=== PATIENT | female | born 1985 | race Hispanic/Latino ===

== ENCOUNTER 2017-08-02 10:49 | Emergency (ER) | payer SELFPAY ==
[2017-08-02] MEDS ORDERED: KETOROLAC TROMETHAMINE 30MG/ML ONE (11:33)
== END 2017-08-02 12:53 | disposition home or self-care (01) ==
LOC: EDH 10:49
DX: R59.9 Enlarged lymph nodes, unspecified (principal); Z98.890 Other specified postprocedural states
CPT/HCPCS: 71046; 73000; 76536; 96372; 99284; J1885

== ENCOUNTER 2019-06-22 19:08 | Emergency (ER) | payer OTHER ==
[2019-06-22 19:47] LABS: BASOPHILS % (AUTO) 0.4 % (0.0-5.0); EOSINOPHILS % (AUTO) 1.9 % (0.0-8.0); HEMATOCRIT 36.5 % (36-48); LYMPHOCYTES % (AUTO) 29.5 % (21.0-51.0); MEAN CORPUSCULAR HEMOGLOBIN 26.7 pg (27.0-33.0); MEAN CORPUSCULAR HGB CONC 32.1 g/dL (32.0-36.0); MEAN CORPUSCULAR VOLUME 83.1 fL (79-99); MONOCYTES % (AUTO) 8.3 % (3.0-13.0); NEUTROPHILS % (AUTO) 59.6 % (40.0-77.0); PLATELET COUNT (AUTO) 430 K/uL (130-400); RED BLOOD CELL COUNT(AUTO) 4.39 MIL/uL (4.00-5.50); RED CELL DISTRIBUTION WIDTH 13.6 % (11.0-15.5); WHITE BLOOD COUNT (AUTO) 11.3 K/uL (4.8-10.8)
[2019-06-22 19:56] LABS: CREATININE 0.8 mg/dL (0.5-1.5); POTASSIUM 3.7 mmol/L (3.5-5.1)
[2019-06-22] MEDS ORDERED: SODIUM CHLORIDE 0.9% 1000ML 1,000 ML IV ONE (20:13)
[2019-06-22 20:21] LABS: APPEARANCE,URINE Clear (CLEAR); BILIRUBIN,URINE Negative (NEGATIVE); COLOR,URINE Yellow (YELLOW); GLUCOSE, URINE (UA) Negative (NEGATIVE); HCG,QUAL RESULT NEGATIVE (NEGATIVE); KETONES,URINE Negative (NEGATIVE); LEUKOCYTE ESTERASE ,URINE Negative (NEGATIVE); NITRATE,URINE Negative (NEGATIVE); OCCULT BLOOD,URINE Nonhemolyzed Trace (NEGATIVE); PH,URINE 6.5 (5.0-8.0); PROTEIN,URINE Negative (NEGATIVE)
[2019-06-22 20:29] LABS: RBC,URINE 0-1 /HPF (0-1)
[2019-06-22 20:30] LABS: BACTERIA,URINE Rare /HPF (None Seen); MUCUS,URINE Rare LPF (None Seen); SQUAMOUS EPITHELIAL CELL,UR Few /HPF (0-2)
== END 2019-06-22 21:29 | disposition home or self-care (01) ==
LOC: EDH 19:08
DX: J20.8 Acute bronchitis due to other specified organisms (principal)
CPT/HCPCS: 36415; 71046; 80048; 81001; 81025; 84484; 85025; 85378; 87804 ×2; 93005; 99285; J7030

== ENCOUNTER 2021-10-30 23:43 | Emergency (ER) | payer OTHER ==
[~2021-10-30] VITALS: Ht 165.1 cm; Wt 104.3 kg
[2021-10-31 00:54] LABS: BASOPHILS % (AUTO) 0.5 % (0.0-5.0); EOSINOPHILS % (AUTO) 1.8 % (0.0-8.0); HEMATOCRIT 33.1 % (36-48); LYMPHOCYTES % (AUTO) 32.1 % (21.0-51.0); MEAN CORPUSCULAR HGB CONC 29.9 g/dL (32.0-36.0); MEAN CORPUSCULAR VOLUME 73.7 fL (79-99); MONOCYTES % (AUTO) 8.4 % (3.0-13.0); PLATELET COUNT (AUTO) 513 K/uL (130-400); RED BLOOD CELL COUNT(AUTO) 4.49 MIL/uL (4.00-5.50); RED CELL DISTRIBUTION WIDTH 17.3 % (11.0-15.5)
[2021-10-31 01:07] LABS: ALBUMIN 4.1 g/dL (3.5-5.0); BILIRUBIN,TOTAL 0.2 mg/dL (0.2-1.0); CREATININE 0.7 mg/dL (0.5-1.5); TOTAL PROTEIN, SERUM 8.1 g/dL (6.0-8.3)
[2021-10-31 01:40] LABS: APPEARANCE,URINE Clear (CLEAR); BILIRUBIN,URINE Negative (NEGATIVE); COLOR,URINE Yellow (YELLOW); GLUCOSE, URINE (UA) Negative (NEGATIVE); KETONES,URINE Negative (NEGATIVE); LEUKOCYTE ESTERASE ,URINE Negative (NEGATIVE); NITRATE,URINE Negative (NEGATIVE); OCCULT BLOOD,URINE Trace (NEGATIVE); PH,URINE 6.5 (5.0-8.0); PROTEIN,URINE Negative (NEGATIVE); UROBILINOGEN,URINE 0.2 mg/dL (0.2-1.0)
[2021-10-31 01:42] LABS: HCG,QUAL RESULT NEGATIVE/VF (NEGATIVE)
[2021-10-31 02:00] LABS: BACTERIA,URINE None Seen /HPF (None Seen); RBC,URINE 0-1 /HPF (0-1); SQUAMOUS EPITHELIAL CELL,UR Rare /HPF (0-2); WBC,URINE None Seen /HPF (0-1)
[2021-10-31] MEDS ORDERED: KETOROLAC 15MG/ML VIAL (15MG/ML) ONE (02:12)
[2021-10-31] MEDS ORDERED: PROCHLORPERAZINE 10MG/2ML INJ ONE (02:12)
[2021-10-31] MEDS ORDERED: DIPHENHYDRAMINE HCL 25 MG CAPSULE ONE (02:12)
[2021-10-31] MEDS ORDERED: FIORIT PO (02:31)
[2021-10-31 02:41] VITALS: BP 138/77
== END 2021-10-31 02:46 | disposition home or self-care (01) ==
LOC: EDH 23:43
DX: G43.909 Migraine, unspecified, not intractable, without status migrainosus (principal); R11.2 Nausea with vomiting, unspecified; I10 Essential (primary) hypertension; Z79.1 Long term (current) use of non-steroidal anti-inflammatories (NSAID)
CPT/HCPCS: 36415; 80053; 81001; 81025; 85025; 96374; 96375; 99284; J0780; J1885; Q0163

== ENCOUNTER 2022-11-19 19:06 | Emergency (ER) | payer OTHER ==
[~2022-11-19] VITALS: Ht 160 cm; Wt 107.0 kg
[~2022-11-19 19:06] MED LIST: FIORIT PO
[2022-11-19 21:12] LABS: BASOPHILS % (AUTO) 0.5 % (0.0-5.0); EOSINOPHILS % (AUTO) 2.4 % (0.0-8.0); HEMATOCRIT 32.7 % (36-48); LYMPHOCYTES % (AUTO) 28.9 % (21.0-51.0); MEAN CORPUSCULAR HEMOGLOBIN 21.4 pg (27.0-33.0); MEAN CORPUSCULAR VOLUME 71.6 fL (79-99); MONOCYTES % (AUTO) 8.2 % (3.0-13.0); NEUTROPHILS % (AUTO) 59.6 % (40.0-77.0); PLATELET COUNT (AUTO) 545 K/uL (130-400); RED BLOOD CELL COUNT(AUTO) 4.57 MIL/uL (4.00-5.50); RED CELL DISTRIBUTION WIDTH 17.6 % (11.0-15.5); WHITE BLOOD COUNT (AUTO) 11.5 K/uL (4.8-10.8)
[2022-11-19 21:28] LABS: CREATININE 0.6 mg/dL (0.5-1.5); POTASSIUM 3.3 mmol/L (3.5-5.1)
[2022-11-19 21:32] LABS: ALBUMIN 3.7 g/dL (3.5-5.0); TOTAL PROTEIN, SERUM 7.9 g/dL (6.0-8.3)
[2022-11-19] MEDS ORDERED: POTASSIUM BICARB/CIT AC 25 MEQ TABLET.EFF PO ONE ×2 (22:00→23:00)
[2022-11-19 22:36] LABS: APPEARANCE,URINE CLEAR (CLEAR); BILIRUBIN,URINE NEGATIVE (NEGATIVE); COLOR,URINE LIGHT-YELLOW (YELLOW); GLUCOSE, URINE (UA) NEGATIVE (NEGATIVE); KETONES,URINE NEGATIVE (NEGATIVE); LEUKOCYTE ESTERASE ,URINE 75 Leu/uL (NEGATIVE); NITRATE,URINE NEGATIVE (NEGATIVE); OCCULT BLOOD,URINE NEGATIVE (NEGATIVE); PH,URINE 5.5 (5.0-8.0); PROTEIN,URINE NEGATIVE (NEGATIVE); UROBILINOGEN,URINE 0.2 mg/dL (0.2-1.0)
[2022-11-19 22:44] LABS: BACTERIA,URINE RARE /HPF (None Seen); MUCUS,URINE RARE LPF (None Seen); SQUAMOUS EPITHELIAL CELL,UR RARE /HPF (0-2); WBC,URINE 0-1 /HPF (0-1)
[2022-11-19 23:00] VITALS: BP 145/86
[2022-11-19] MEDS ORDERED: CEPH500B PO (23:01)
== END 2022-11-19 23:14 | disposition home or self-care (01) ==
LOC: EDH 19:06
DX: N39.0 Urinary tract infection, site not specified (principal); E87.6 Hypokalemia; D64.9 Anemia, unspecified; I10 Essential (primary) hypertension; Z98.890 Other specified postprocedural states
CPT/HCPCS: 36415; 71045; 80053; 81001; 81025; 83735; 84484; 85025; 87088; 93005

== ENCOUNTER 2025-03-01 08:53 | Emergency (ER) | payer SELFPAY ==
[~2025-03-01] VITALS: Ht 157.5 cm; Wt 95.7 kg
[~2025-03-01 08:53] MED LIST changes: +CEPH500B PO
--- NOTE | 2025-03-01 09:20 | ERN ---
General Chief Complaint: Abdominal Pain Stated Complaint: ABDOMINAL PAIN Time Seen by MD: 09:04 History of Present Illness Initial Comments 40-year-old female presents for abdominal pain. She reports yesterday in the afternoon she developed left upper quadrant and epigastric abdominal pain. She had an episode of vomiting. She had an episode of watery diarrhea. She reports some cramping since. No further vomiting or diarrhea. She reports a constant cramping type pain. No urinary symptoms. No fevers. She did not eat this morning because her stomach is upset. No sick contacts. No medical conditions Surgical history: Allergies: Coded Allergies: No Known Drug Allergies (Unverified Allergy, Unknown, 06/22/19) Home Meds Active Scripts Cephalexin Monohydrate (Keflex) 500 Mg Cap, 500 MG PO QID for 7 Days, #28 CAP Prov:JAXSON RAMIREZ 11/19/22 Butalb/Acetaminophen/Caffeine (Fioricet) 1 Tab Tab, 1 TAB PO QID for HEADACHE, #20 TAB Prov:RITA MARTÍNEZ MD 10/31/21 Past Medical History Past Medical History: Hypertension Past Surgical History: Social History Social History: Negative, Lives with family Female( History) History: Not Applicable ROS Dictation CONSTITUTIONAL: No chills, no fever, no weakness, no diaphoresis, no malaise. HEAD/FACE: No signs of trauma. EENT: No eye pain, no blurred vision, no tearing, no double vision, no ear pain, no ear discharge, no nose pain, no nasal congestion, no throat pain, no throat swelling, no mouth pain. RESPIRATORY: No cough, no orthopnea, no SOB, no stridor, no wheezing. CARDIOVASCULAR: No chest pain, no edema, no palpitations, no syncope. GASTROINTESTINAL/ABDOMINAL: Abdominal pain, episode of vomiting and watery diarrhea. GENITOURINARY: No abnormal discharge, no dysuria, no frequent urination, no hematuria. No complaints of pain in the genitals. MUSCULOSKELETAL: No back pain, no gout, no joint pain, no joint swelling, no muscle pain, no muscle stiffness, no neck pain. INTEGUMENTARY: No change in color, no change in hair/nails, no dryness, no lesion, no lumps, no rash. NEUROLOGICAL/PSYCH: No anxiety, not depressed, no emotional problem, no headache, no numbness, no pre-existing deficit, no history of seizures, no tremors, no weakness. HEMATOLOGIC/LYMPHATIC: Not anemic, no history of blood clots, no apparent b leeding, no bruising, glands not swollen. All Systems Negative, Except as Noted. Physical Exam Physical Exam Dictation VITAL SIGNS: Reviewed. GENERAL APPEARANCE: Alert, oriented x3, no acute distress, obese. HEAD AND FACE: Non-traumatic. EYES: PERRL, pink conjunctivas, eyelid no trauma, anterior chamber clear. EARS: Pinnas intact and no signs of trauma or erythema. Ear canals clear and no discharge. TMs no erythema. NOSE: No discharge, no bleeding. OROPHARYNX: Mouth normal, teeth no caries, tongue pink. Pharynx clear, no erythema. Tonsils no exudates, no abscesses noted. Mucous membrane moist. NECK: Supple, non-tender, no thyromegaly, no masses, no JVD, no bruits. BREAST: Deferred. CHEST: No tenderness, no crepitus, no paradoxical movement, no retractions. LUNGS: Clear, well-ventilated, symmetric, no rales, no wheezing, no rhonchi, no stridor, good breath sounds bilaterally. HEART: Regular rate, regular rhythm, no murmur, no gallops. VASCULAR: No peripheral edema. ABDOMEN: Soft, positive bowel sounds, nondistended, no guarding, nontender, no rebound, no masses no hepatomegaly, no splenomegaly, no Ortega's sign, no hernias. RECTAL: Deferred. GENITAL: Deferred. NEUROLOGICAL: Normal speech, gross motor function intact, gross sensory function intact. MUSCULOSKELETAL: Neck nontender, full range of motion, back nontender, full ra nge of motion. EXTREMITIES: Nontender, full range of motion. SKIN: Color pink, dry, no turgor, no rash, no lacerations, no abrasions, no contusions. LYMPHATICS: Deferred. Results Laboratory and Microbiology Lab and Micro Result Laboratory Tests Test 03/01/25 09:20 White Blood Count 8.2 K/uL (4.8-10.8) Red Blood Count 4.22 MIL/uL (4.00-5.50) Hemoglobin 8.5 g/dL (12.0-16.0) L Hematocrit 28.6 % (36-48) L Mean Corpuscular Volume 67.8 fL (79-99) L Mean Corpuscular Hemoglobin 20.1 pg (27.0-33.0) L Mean Corpuscular Hemoglobin Concent 29.7 g/dL (32.0-36.0) L Red Cell Distribution Width 18.7 % (11.0-15.5) H Platelet Count 548 K/uL (130-400) H Mean Platelet Volume 8.8 fL (7.5-10.5) Immature Granulocyte % (Auto) 0.4 % (0-1) Neutrophils (%) (Auto) 57.8 % (40.0-77.0) Lymphocytes (%) (Auto) 29.1 % (21.0-51.0) Monocytes (%) (Auto) 9.1 % (3.0-13.0) Eosinophils (%) (Auto) 3.1 % (0.0-8.0) Basophils (%) (Auto) 0.5 % (0.0-5.0) Neutrophils # (Auto) 4.7 K/uL (1.8-7.7) Lymphocytes # (Auto) 2.4 K/uL (1.0-4.8) Monocytes # (Auto) 0.7 K/uL (0.1-1.0) Eosinophils # (Auto) 0.25 K/uL (0.00-0.70) Basophils # (Auto) 0.04 K/uL (0.00-0.20) Absolute Immature Granulocyte (auto 0.03 K/uL (0-1) Nucleated Red Blood Cells 0.0 % (0.0-0.19) Red Blood Cell Morphology See comments Urine Color LIGHT-YELLOW (YELLOW) Urine Appearance CLEAR (CLEAR) Urine pH 5.5 (5.0-8.0) Urine Specific [place] 1.025 (1.001-1.031) Urine Protein NEGATIVE mg/dL (NEGATIVE) Urine Glucose (UA) NEGATIVE mg/dL (NEGATIVE) Urine Ketones NEGATIVE mg/dL (NEGATIVE) Urine Occult Blood +- (TRACE) (NEGATIVE) H Urine Nitrate NEGATIVE (NEGATIVE) Urine Bilirubin NEGATIVE mg/dL (NEGATIVE) Urine Urobilinogen 0.2 mg/dL (0.2-1.0) Urine Leukocyte Esterase NEGATIVE Nadeem/uL Urine RBC 0-1 /HPF (0-1) Urine WBC 0-1 /HPF (0-1) Urine Squamous Epithelial Cells RARE /HPF (0-2) Urine Bacteria None /HPF (None Seen) Urine HCG, Qualitative NEGATIVE (NEGATIVE) Sodium Level 136 mmol/L (136-145) Potassium Level 3.9 mmol/L (3.5-5.1) Chloride Level 103 mmol/L (101-111) Carbon Dioxide Level 26 mmol/L (21-32) Blood Urea Nitrogen 12 mg/dL (7-18) Creatinine 0.6 mg/dL (0.5-1.0) Glomerular Filtration Rate Calc 116 mL/min (>90) Random Glucose 87 mg/dL (70-105) Total Calcium 8.8 mg/dL (8.5-10.1) Total Bilirubin 0.3 mg/dL (0.2-1.0) Direct Bilirubin 0.1 mg/dL (0.0-0.3) Aspartate Amino Transf (AST/SGOT) 19 U/L (10-37) Alanine Aminotransferase (ALT/SGPT) 30 U/L (12-78) Alkaline Phosphatase 83 U/L (50-136) Troponin I High Sensitivity 5 ng/L (4-50) Total Protein 7.3 g/dL (6.0-8.3) Albumin 3.6 g/dL (3.5-5.0) Lipase 38 U/L (16-77) MDM Bed one CC: Abdominal pain, epigastric pain, episode of vomiting, episode of diarrhea for 24 hours Historian: Patient Comorbidities: Obesity Limitations by social determinants of health: None Differential diagnosis: Gastroenteritis, dehydration, biliary pathology, pancreatitis, gastric pathology, surgical pathology, other. Vital signs are stable Clinically patient does have a tender abdomen in the epigastric area. EKG: Sinus rhythm, rate of 68, normal axis, good R-wave progression, intervals are stable no STEMI. Independently interpreted by me. CXR: no cardiomegaly, no effusions. Unremarkable. Independently interpreted by me. Labs (independently interpreted by me): no leukocytosis, microcytic anemia, thrombocytosis, BMP stable. LFTs stable, lipase stable, troponin normal. UA unremarkable. CT abdomen/pelvis w/ contrast: unremarkable. No surgical pathology or life threats. Symptoms most consistent with a gastroenteritis. I suspect he there food toxicity or a viral syndrome. Treatment in ED: 1 L of lactated Ringer's, IV morphine for pain control with frequent re-evaluations, IV Zofran, IV Toradol. Re-evaluation: Pain controlled, p.o. tolerant, nontoxic, stable vital signs. Patient is stable for discharge. We will discharge with a prescription for ondansetron to use as needed. ED Course Orders Procedure Category Date Status Time Cbc With Differential LAB 03/01/25 Complete 09:14 Troponin I High LAB 03/01/25 Complete Sensitivity 09:14 ,Urine Test LAB 03/01/25 Complete 09:14 Urinalysis Profile LAB 03/01/25 Complete 09:14 Ct Abdomen/Pelvis CT 03/01/25 Resulted W/Contrast 09:14 Lactated Ringers PHA 03/01/25 Complete 1000ml (Lactated 09:30 Ketorolac PHA 03/01/25 Complete Tromethamine 15mg/Ml 09:30 Morphine 4mg Syg PHA 03/01/25 Complete (Morphine 4mg Syg) 09:30 Ondansetron 4mg Inj PHA 03/01/25 Complete (Zofran 4mg Inj) 09:30 Chest 1vw RAD 03/01/25 Resulted 09:14 Lipase LAB 03/01/25 Complete 09:14 Basic Metabolic Panel LAB 03/01/25 Complete 09:14 12 Lead Ekg Tracing- EKG 03/01/25 Complete Technical 09:14 Hepatic Function Panel LAB 03/01/25 Complete 09:14 Iohexol (Omnipaque) PHA 03/01/25 Complete 11:39 Current Medications Medications (Trade) Dose Ordered Sig/Liborio Route PRN Reason Start Time Stop Time Status Last Admin Dose Admin Iohexol (Omnipaque) 75 ml STK-MED ONCE IV 03/01/25 11:39 03/01/25 11:39 DC Ketorolac Tromethamine (toRADol) 15 mg ONCE ONCE IV 03/01/25 09:30 03/01/25 09:31 DC 03/01/25 09:30 Lactated Ringer's 1,000 ml @ 0 mls/hr ONCE ONCE IV 03/01/25 09:30 03/01/25 09:31 DC 03/01/25 09:30 Morphine Sulfate (morPHINE 4MG SYG) 4 mg ONCE ONCE IVP 03/01/25 09:30 03/01/25 09:31 DC 03/01/25 09:32 Ondansetron HCl (zoFRAN 4MG INJ) 4 mg ONCE ONCE IVP 03/01/25 09:30 03/01/25 09:31 DC 03/01/25 09:30 Vital Signs Date Time Temp Pulse Resp B/P (MAP) Pulse Ox O2 Delivery O2 Flow Rate FiO2 03/01/25 11:41 97.7 63 13 148/83 100 Room Air* 0 21 03/01/25 10:21 97.9 64 25 144/82 99 Room Air* 0 21 03/01/25 08:54 98.2 76 16 161/100 100 Room Air DX & DISP Disposition: Discharge Departure Impression: Primary Impression: Gastroenteritis Condition: Stable Scripts Ondansetron (Ondansetron Odt) 4 Mg Tab.rapdis 1 TAB PO Q6HPRN PRN for nausea/vomiting for 3 Days, #9 TAB 0 Refills Prov: LALITO GONZALEZ DO 03/01/25 Additional Instructions: Your symptoms are most consistent with a gastroenteritis. This is a infection of the intestines that has often caused by food toxicity or a virus. This type of infections does not require antibiotics and we will generally clear on its own. I have prescribed ondansetron dissolvable tabs to use as needed for nausea and vomiting. You can alternate Tylenol (1000 mg) or ibuprofen (400 mg) every 4 hours as needed for pain or discomfort. Drink plenty of liquids. An electrolyte solution such as Gatorade has a good choice. Start with the brat diet (bananas, rice, applesauce, toast). Advance her diet slowly as tolerated after that. Please follow up with the primary doctor in 48 hours if you continue with symptoms. Return to the emergency department sooner if you have any concerns. Referrals: ZACARIAS CHAKRABORTY (PCP) LALITO GONZALEZ DO Mar 01, 2025 09:20
--- NOTE | 2025-03-01 09:29 | EKG ---
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
[2025-03-01] MEDS: LACTATED RINGERS 1000ML 1,000 ML IV ONE (09:30)
[2025-03-01 09:35] LABS: IMMATURE GRANULOCYTE ABSOLUTE 0.03 K/uL (0-1); NUCLEATED RED BLOOD CELLS 0.0 % (0.0-0.19); PLATELET COUNT (AUTO) 548 K/uL (130-400); RED BLOOD CELL COUNT(AUTO) 4.22 MIL/uL (4.00-5.50); RED CELL DISTRIBUTION WIDTH 18.7 % (11.0-15.5); WHITE BLOOD COUNT (AUTO) 8.2 K/uL (4.8-10.8)
[2025-03-01 09:43] LABS: CREATININE 0.6 mg/dL (0.5-1.0); GLOMERULAR FILTR. RATE CALC 116.0 mL/min (>90); GLUCOSE,RANDOM 87.0 mg/dL (70-105); SODIUM SERUM 136.0 mmol/L (136-145); UREA NITROGEN, BLOOD 12.0 mg/dL (7-18)
[2025-03-01 09:48] LABS: ASPARTATE AMINOTRANSFERASE 19.0 U/L (10-37); TOTAL PROTEIN, SERUM 7.3 g/dL (6.0-8.3)
[2025-03-01 09:50] LABS: APPEARANCE,URINE CLEAR (CLEAR); GLUCOSE, URINE (UA) NEGATIVE (NEGATIVE); LEUKOCYTE ESTERASE ,URINE NEGATIVE Leu/uL (NEGATIVE); NITRATE,URINE NEGATIVE (NEGATIVE); OCCULT BLOOD,URINE +- (TRACE) (NEGATIVE)
[2025-03-01 09:52] LABS: ADD UA MICROSCOPIC YES; HCG,QUALITATIVE URINE NEGATIVE (NEGATIVE)
[2025-03-01 09:56] LABS: SQUAMOUS EPITHELIAL CELL,UR RARE /HPF (0-2)
--- NOTE | 2025-03-01 10:28 | HMCIMG ---
EXAM: CR Chest, 1 View. CLINICAL HISTORY: epigastric pain COMPARISON: 11/19/22 19:57 EDT CR - CHEST 1VW FINDINGS: LUNGS: There is no mass, infiltrate, or acute pulmonary abnormality. PLEURAL SPACES: No evidence of pleural effusion or pneumothorax. MEDIASTINUM: Cardiac size and mediastinal contours within normal limits. BONES: No acute osseous abnormality. IMPRESSION: No acute cardiopulmonary pathology is evident. /[place]
[2025-03-01] MEDS ORDERED: IOHEXOL-350 75 ML VIAL IV ONE (11:39)
--- NOTE | 2025-03-01 12:08 | HMCIMG ---
CT ABDOMEN/PELVIS W/CONTRAST HISTORY: epigastric pain, vomiting. COMPARISON: None. TECHNIQUE: Sequential axial images through abdomen and pelvis were performed. Patient was given 100 mL of Omnipaque IV. Coronal and sagittal reformats were obtained. FINDINGS: Lung bases: Clear. Liver: Normal size and enhancement throughout. Portal vein: Patent. Gallbladder: Unremarkable. Spleen: Normal. Kidneys: Normal size and shape. Adrenal glands: Normal Pancreas: Unremarkable. Stomach and small bowel: No inflammation or distention noted. Colon: Unremarkable. Appendix: Normal. Bladder: Partially distended and unremarkable. There is bilateral ureteral jets seen. Reproductive system: The uterus is deviating towards the left side otherwise appears to be normal.. Abdominal aorta: Normal caliber. Skeletal: No acute abnormality. IMPRESSION: No acute process noted.
[2025-03-01] MEDS ORDERED: ONDA-243 PO (12:36)
[2025-03-01 13:06] VITALS: BP 169/102; PULSE 71; RESP 13; TEMP 97.9; O2SAT 100
--- NOTE | 2025-03-01 13:07 | NUR ---
DC PATIENT WAS DC'D BY DR GONZALEZ, I DC'D PATIENTS IV WITH CATH STILL INTACT AND APPLIED 2X2 GAUZE WITH COBAN, I ALSO EXPLAINED TO PATIENT TO FOLLOW UP WITH PCP, PROVIDED INFO BASED ON DIAGNOSIS, PRESCRIPTIONS, AND ANSWERED ANY FOLLOW UP QUESTIONS, I ALSO INSTRUCTED PATIENT TO TAKE HOME BLOOD PRESSURE MEDICATION SINCE SHE DID NOT TAKE IT THIS MORNING PRIOR TO ARRIVAL, SHE DENIES CHEST PAIN AND SOB, PATIENT WAS AMBULATED OUT OF ED, NO COMPLICATIONS
== END 2025-03-01 13:05 | disposition home or self-care (01) ==
LOC: EDH 08:53
DX: K52.9 Noninfective gastroenteritis and colitis, unspecified (principal); E66.9 Obesity, unspecified; I10 Essential (primary) hypertension; Z79.899 Other long term (current) drug therapy; Z98.890 Other specified postprocedural states
CPT/HCPCS: 99285; 74177; 96374; 96375; 71045; 96361; 80076; 84484; 80048; 83690; 85025; 81001; 81025; 36415; 93005; J1885; J7120; J2405; J2270; Q9967